=== PATIENT | male | born 1990 | race Caucasian/White ===

== ENCOUNTER → 2024-07-13 09:51 | Outpatient (REF) | payer OTHER, SELFPAY | LOC: HWRAD 09:51 | PROVIDERS: ATTENDING PHYSICIAN Otolaryngology; FAMILY PHYSICIAN Internal Medicine | DX: J32.0 Chronic maxillary sinusitis (principal) | CPT/HCPCS: 70486 ==

== ENCOUNTER 2024-08-18 06:23 | Day surgery (SDC) | payer OTHER, SELFPAY ==
[2024-08-18] VITALS (8 sets, daily range): BP systolic 132–151; BP diastolic 57–97; BMI 23.9
[2024-08-18] MEDS: TYLENOL 1000 MG PO (08:43)
[2024-08-18] MEDS: EMEND 40 MG PO (08:43)
[2024-08-18] MEDS: NORMOSOL-R/PLASMALYTE-A 1000 IV (08:43)
== END 2024-08-18 13:59 | disposition home or self-care (01) ==
LOC: SDS 06:23
PROVIDERS: ATTENDING PHYSICIAN Otolaryngology
DX: J34.2 Deviated nasal septum (principal); J34.3 Hypertrophy of nasal turbinates; J34.89 Other specified disorders of nose and nasal sinuses
CPT/HCPCS: 30140; 30520